=== PATIENT | male | born 1995 | race Caucasian/White ===

== ENCOUNTER 2019-06-17 17:59 | Emergency (ER) | payer OTHER ==
[2019-06-17 18:15] VITALS: BP 137/62
--- NOTE | 2019-06-17 18:46 | ER Document Report ---
HPI - HPI Patient complains to provider of: low back pain, penile irritation Time Seen by Provider: 06/17/19 18:40 Onset: Other Onset/Duration: Sudden Quality of pain: Achy Pain Level: 2 Context: This 24-year-old male presents emergency department with low back pain he has had for multiple months has been checked out by the [facility] has had an x- ray done. No trauma denies urinary or bowel incontinence or retention. Denies fever vomiting diarrhea. Also reports that he is having some irritation around the head of his penis. Patient is uncircumcised. Denies pain with void. Denies penile discharge. Denies testicular pain. Reports the head of his penis is red. Associated Symptoms: None Exacerbated by: Movement Relieved by: Denies Similar symptoms previously: Yes Recently seen / treated by doctor: Yes - REPRODUCTIVE Reproductive: DENIES: : Past Medical History - General Information source: Patient - Social History Smoking Status: Never Smoker Chew tobacco use (# tins/day): No Frequency of alcohol use: None Drug Abuse: None Occupation: [employer] [place] Lives with: Family Family History: None Patient has suicidal ideation: No Patient has homicidal ideation: No - Medical History Medical History: Negative Surgical Hx: Negative Vertical Provider Document - CONSTITUTIONAL Agree With Documented VS: Yes Exam Limitations: No Limitations General Appearance: WD/WN, No Apparent Distress - INFECTION CONTROL TRAVEL OUTSIDE OF THE [place] IN LAST 30 DAYS: No - HEENT HEENT: Atraumatic, Normocephalic - NECK Neck: Normal Inspection, Supple. negative: Lymphadenopathy-Left, Lymphadenopathy-Right - RESPIRATORY Respiratory: Breath Sounds Normal, No Respiratory Distress - CARDIOVASCULAR Cardiovascular: Regular Rate, Regular Rhythm - GI/ABDOMEN Gastrointestinal: Abdomen Soft, Abdomen Non-Tender - REPRODUCTIVE Male Genitalia: Abnormal Inspection - Erythema to the head of the penis base of the penis. No discharge no swelling foreskin is movable. No testicular pain no testicular swelling. - BACK Back: Normal Inspection - MUSCULOSKELETAL/EXTREMETIES Musculoskeletal/Extremeties: ÁNGEL JAMIL - NEURO Level of Consciousness: Awake, Alert, Appropriate - DERM Integumentary: Warm, Dry Course - Re-evaluation Re-evalutation: 06/17/19 19:47 Complaints of low back pain and penile irritation. Reports low back pain for many months and penile irritation started today. Denies pain with void denies fever vomiting diarrhea. UA is negative. Patient appears to have balanitis. Patient was instructed on the importance of good hygiene using soap without fragrances and apply antifungal twice a day. He was also instructed to follow- up with his BAS Tuesday for recheck. Patient left at this reports he does not want his penile issues in his medical record. Dictation of this chart was performed using voice recognition software; therefore, there may be some unintended grammatical errors. Urine Color YELLOW 06/17/19 19:02 Urine Appearance CLOUDY 06/17/19 19:02 Urine pH 8.0 (5.0-9.0) 06/17/19 19:02 Ur Specific [place] 1.020 06/17/19 19:02 Urine Protein NEGATIVE mg/dL (NEGATIVE) 06/17/19 19:02 Urine Glucose (UA) NEGATIVE mg/dL (NEGATIVE) 06/17/19 19:02 Urine Ketones NEGATIVE mg/dL (NEGATIVE) 06/17/19 19:02 Urine Blood NEGATIVE (NEGATIVE) 06/17/19 19:02 Urine Nitrite NEGATIVE (NEGATIVE) 06/17/19 19:02 Ur Leukocyte Esterase NEGATIVE (NEGATIVE) 06/17/19 19:02 Urine RBC (Auto) 4 /HPF 06/17/19 19:02 - Vital Signs Vital signs: Temp Pulse Resp BP Pulse Ox 98.1 F 76 18 137/62 H 97 06/17/19 18:40 06/17/19 18:40 06/17/19 18:40 06/17/19 18:40 06/17/19 18:40 Discharge - Discharge Clinical Impression: Balanitis, Low back pain Condition: Stable Disposition: HOME, SELF-CARE Instructions: Balanitis ([facility]), Use of Erah-B[facility] Ibuprofen ([facility]), Low Back Pain ([facility]), Topical Antifungal ([facility]) Additional Instructions: *You have been evaluated for back pain penile irritation, balanitis *Take ibuprofen as indicated for pain Use frequents free soap such as Dove Apply antifungal twice a day Follow-up with your BAS tomorrow *Return to ED for worsening condition, changes, needs Monitor your blood pressure. Your blood pressure was elevated today. This may be because you were anxious, in pain or because you need medication. It is important to follow up with your primary care provider for full evaluation. Forms: Elevated Blood Pressure
[2019-06-17 19:17] LABS: APPEARANCE,URINE CLOUDY; BILIRUBIN,URINE NEGATIVE (NEGATIVE); COLOR,URINE YELLOW; GLUCOSE, URINE NEGATIVE (NEGATIVE); KETONES,URINE NEGATIVE (NEGATIVE); LEUKOCYTE ESTERASE,URINE NEGATIVE (NEGATIVE); NITRITE,URINE NEGATIVE (NEGATIVE); PROTEIN,URINE NEGATIVE (NEGATIVE)
[2019-06-17] MEDS ORDERED: CLOTRIMAZOLE 1% TOPICAL SOLN 10 ML TP ONE (19:23)
[2019-06-17] MEDS ORDERED: IBUPROFEN 800 MG TABLET PO ONE (19:48)
[2019-06-17] MEDS ORDERED: CLOTRIMAZOLE 1% CREAM 15 GM ONE (20:12)
== END 2019-06-17 18:42 | disposition home or self-care (01) ==
LOC: ER 17:59
DX: N48.1 Balanitis (principal); M54.5 Low back pain; N48.89 Other specified disorders of penis
CPT/HCPCS: 99283; 81001; J3490